=== PATIENT | male | born 1990 | race Caucasian/White ===

== ENCOUNTER 2016-10-05 14:51 | Emergency (ER) | payer SELFPAY ==
[~2016-10-05] VITALS: Ht 182.9 cm; Wt 83.6 kg
[2016-10-05 14:53] VITALS: BP 158/91
== END 2016-10-05 15:21 | disposition home or self-care (01) ==
LOC: ED 15:15
DX: K08.89 Other specified disorders of teeth and supporting structures (principal)
CPT/HCPCS: 99283